=== PATIENT | male | born 1970 | race American Indian/Alaskan Native ===

== ENCOUNTER 2023-08-03 19:20 | Emergency (ER) | payer OTHER ==
[2023-08-03] MEDS ORDERED: Fluorescein 1 MG Ophth Strip EYELF ONE (19:37)
[2023-08-03] MEDS ORDERED: Dexamethasone/Tobramycin 0.1-0.3% Ophth Susp 5 ML Bottle EYELF SCH (20:00)
[2023-08-03] MEDS ORDERED: prednisoLONE Acetate 1% Ophth Susp 5 ML Bottle EYELF SCH (21:00)
== END 2023-08-03 20:23 | disposition home or self-care (01) ==
LOC: JD.ED 19:20
DX: H10.89 Other conjunctivitis (principal); X58.XXXA Exposure to other specified factors, initial encounter
CPT/HCPCS: 99283; A9270; 99282